=== PATIENT | female | born 1985 | race Caucasian/White ===

== ENCOUNTER 2023-09-09 11:44 | Emergency (ER) | payer OTHER, MEDICAID, SELFPAY ==
[2023-09-09 11:51] VITALS: BP 146/73; PULSE 85; RESP 17; TEMP 36.9; O2SAT 100; BMI 20.7
--- NOTE | 2023-09-09 11:55 | DI.RAD.S_ITS ---
PROCEDURE: XR WRIST LT MIN 3V INDICATIONS: fall TECHNIQUE: 3 views of the wrist were acquired. COMPARISON: None. FINDINGS: Bones: Comminuted fracture of the distal radius with minimal displacement with largest butterfly fragment measuring 5.2 centimeters. Fracture lucency extends to the distal radial ulnar joint. Soft tissues: No suspicious soft tissue calcifications. IMPRESSION: Comminuted distal radial fracture. Dictated by: Lior Obregon M.D. on 09/09/2023 at 11:20 Approved by: Lior Obregon M.D. on 09/09/2023 at 11:23
--- NOTE | 2023-09-09 12:31 | ED.UPPEXIN ---
HPI - Extremity Injury (Upper) <Brett Slade PA-C - Last Filed: 09/09/23 13:04> General Chief Complaint: Extremity Injury, Upper Stated Complaint: Fell down stairs, forearm and wrist injury Time Seen by Provider: 09/09/23 12:31 Source: patient Mode of arrival: Ambulatory History of Present Illness HPI narrative: This is a 37-year-old female presents to the emergency department due to a left forearm injury. She was working in his stairs when she fell backwards and landed on her left forearm and hand. She was not report any pain in her hand or elbow or shoulder or any other part of her body but does report pain over the left wrist. Denies any numbness, range of motion decreased secondary to pain in the distal fingers. Related Data Previous Rx's Medication Instructions Recorded oxycodone 5 mg tablet 5 mg PO Q6H PRN pain #30 tabs 09/09/23 Allergies Allergy/AdvReac Type Severity Reaction Status Date / Time No Known Allergies Allergy Unknown Verified 09/09/23 11:54 [NO KNOWN ALLERGIES] Review of Systems <Brett Slade PA-C - Last Filed: 09/09/23 13:04> Review of Systems Narrative: GENERAL: Denies chills, fatigue, malaise, fever, sweats. HEENT: Denies sinus pain, ear pain, sore throat, difficulty swallowing, dizziness. RESPIRATORY: Denies dyspnea, cough, wheezing, hemoptysis, sputum. CARDIOVASCULAR: Denies chest pain, palpitations, orthopnea, edema, GASTROINTESTINAL: Denies nausea, vomiting, abdominal pain, diarrhea, constipation, melena. : Denies dysuria, frequency, incontinence, hematuria, urinary retention. MUSCULOSKELETAL: Left wrist pain SKIN: Denies rash, skin lesions, or other NEUROLOGIC: Denies weakness, headache, numbness, change in speech, confusion, seizures, incoordination. PSYCHIATRIC: No concerning psychosocial issues. 12 point review of systems is negative except for those stated above Patient History <LAQUITA Quezada Last Filed: 09/09/23 13:04> Social History Smoking Status: Never smoker Smoking Status: Never smoker alcohol intake frequency: other Substance Use Type: does not use Exam <LAQUITA Quezada Last Filed: 09/09/23 13:04> Narrative Exam Narrative: GENERAL: Well-developed patient, in mild distress. HEAD: Atraumatic. Normocephalic. EYES: Pupils equal round and reactive. Extraocular motions intact. No scleral icterus. No injection or drainage. ENT: Nose without bleeding, purulent drainage. Throat without erythema, tonsillar hypertrophy or exudate. Airway patent. NECK: Trachea midline. Non tender CARDIOVASCULAR: Regular rate and rhythm without murmurs, gallops, or rubs. RESPIRATORY: Clear to auscultation. Breath sounds equal bilaterally. No wheezes, rales, or rhonchi. GASTROINTESTINAL: Abdomen soft, non-tender, nondistended. EXTREMITIES: Tenderness to palpation at the left distal radius. Neurovascularly intact through out. BACK: Nontender without deformity or crepitance. No flank tenderness. NEURO: AOx3. SKIN: No rash or erythema of visible areas Initial Vital Signs Initial Vital Signs: Vital Signs Temperature 98.4 F 09/09/23 11:51 Pulse Rate 85 09/09/23 11:51 Respiratory Rate 17 09/09/23 11:51 Blood Pressure 146/73 H 09/09/23 11:51 Pulse Oximetry 100 09/09/23 11:51 Oxygen Delivery Method Room Air 09/09/23 11:51 <Gwendolyn Casillas DO - Last Filed: 09/09/23 14:27> Initial Vital Signs Initial Vital Signs: Vital Signs Temperature 98.4 F 09/09/23 11:51 Pulse Rate 85 09/09/23 11:51 Respiratory Rate 17 09/09/23 11:51 Blood Pressure 146/73 H 09/09/23 11:51 Pulse Oximetry 100 09/09/23 11:51 Oxygen Delivery Method Room Air 09/09/23 11:51 Procedures <Brett Slade PA-C - Last Filed: 09/09/23 13:04> Orthopedic Splinting/Casting Injury #1: Time of procedure: 12:50 Side: left Upper Extremity Injury Location: wrist Upper Extremity Immobilizer: sugar tong splint Post splinting neuro exam: intact Post splinting vascular exam: intact Placed by: Nursing Course <Brett Slade PA-C - Last Filed: 09/09/23 13:04> Orders Ordered: ED Orders 09/09/23 11:55 XR wrist LT min 3V Stat Discontinued Medications Oxycodone/Acetaminophen (Oxycodone/Acetaminophen 5/325 Tablet) 2 tab PO NOW ONE Stop: 09/09/23 12:41 Last Admin: 09/09/23 12:44 Dose: 2 tab Documented By: SPF Vital Signs Vital signs: Vital Signs - 8 hr 09/09/23 11:51 09/09/23 13:28 Temperature 98.4 F 99.0 F Pulse Rate 85 76 Respiratory Rate 17 Blood Pressure 146/73 H 118/78 Pulse Oximetry 100 98 Oxygen Delivery Method Room Air Room Air <Gwendolyn Casillas DO - Last Filed: 09/09/23 14:27> Orders Ordered: ED Orders 09/09/23 11:55 XR wrist LT min 3V Stat Discontinued Medications Oxycodone/Acetaminophen (Oxycodone/Acetaminophen 5/325 Tablet) 2 tab PO NOW ONE Stop: 09/09/23 12:41 Last Admin: 09/09/23 12:44 Dose: 2 tab Documented By: SPF Vital Signs Vital signs: Vital Signs - 8 hr 09/09/23 11:51 09/09/23 13:28 Temperature 98.4 F 99.0 F Pulse Rate 85 76 Respiratory Rate 17 Blood Pressure 146/73 H 118/78 Pulse Oximetry 100 98 Oxygen Delivery Method Room Air Room Air MDM - Extremity Injury (Upper) <Brett Slade PA-C - Last Filed: 09/09/23 13:04> Imaging Data Extremity x-ray #1: Radiologist's Impression: [place] [address] XRay Report Signed Patient: Lisette Good MR#: [id number] : 1985 Acct:[id number] Age/Sex: 37 / F Date of Service: 09/09/23 Loc: ED Accession Number: [id number] Procedure: XR wrist LT min 3V Ordering Provider: Gwendolyn Casillas D.O. PROCEDURE: XR WRIST LT MIN 3V INDICATIONS: fall TECHNIQUE: 3 views of the wrist were acquired. COMPARISON: None. FINDINGS: Bones: Comminuted fracture of the distal radius with minimal displacement with largest butterfly fragment measuring 5.2 centimeters. Fracture lucency extends to the distal radial ulnar joint. Soft tissues: No suspicious soft tissue calcifications. IMPRESSION: Comminuted distal radial fracture. Dictated by: Lior Obregon M.D. on 09/09/2023 at 11:20 Approved by: Lior Obregon M.D. on 09/09/2023 at 11:23 MDM Narrative Medical decision making narrative: MDM * differential diagnosis includes but not limited to fracture, sprain, neurovascular injury * Prior records reviewed: Patient has not been to the emergency department the past * My lab interpretation: None obtained * My imgaing interpretation: X-ray showed a comminuted distal radius fracture. * Clinical Decision Rules/Scores evaluated: None * Independent discussions with: None ED Course: This is a 37-year-old female presents emergency department due to a comminuted distal radius fracture. She was neurovascularly intact throughout. Patient was splinted and recommended follow up with Orthopedics. Neurovascularly intact post splint placement. Shared Decision Making: Discussed plan with patient who is comfortable with the plan. Social Considerations: None Disposition: Discharged to home Discharge Plan Departure Patient Disposition: Home Clinical Impression: Distal radial fracture Instructions: DI for Distal Radius Fracture Activity Restrictions/Additional Instructions: Thank you for coming to the [facility] Emergency Department today. As we discussed you have the fracture of your distal radius. Please use Tylenol for the pain. You may use the oxycodone for breakthrough pain. Please follow up with the Orthopedics provider his information was attached below. I hope you feel better soon. Please follow up with your primary care provider within a week if your symptoms continue. If you do not have a primary care provider please contact the [facility] Resource line at [phone]. They will ask some questions about your medical history and help you get set up with a provider in the community. Prescriptions: New oxycodone 5 mg tablet 5 mg PO Q6H PRN (Reason: pain) Qty: 30 0RF Referrals: Keven Martinez MD [Physician] - (f/u distal radius fracture. Thank you! ) Melania Wing PA-C [Primary Care Provider] - Stand Alone Forms: Patient Portal/API ED Sign-out <Gwendolyn Casillas DO - Last Filed: 09/09/23 14:27> Cosign ED Attending Ciarraature Attestation: I was immediately available in the department for consultation. Images were reviewed. Agree with plan for splint, follow-up with orthopedic surgery.
[2023-09-09] MEDS: OXYCODONE/ACETAMINOPHEN 5/325 TABLET 2 TAB PO (12:44)
[2023-09-09 13:28] VITALS: BP 118/78; PULSE 76; TEMP 37.2; O2SAT 98
== END 2023-09-09 13:36 | disposition home or self-care (01) ==
PROVIDERS: Emergency Provider Physician Assistant Medical; Family Provider Physician Assistant Medical; PCP Physician Assistant Medical
DX: S52.502A Unspecified fracture of the lower end of left radius, initial encounter for closed fracture (principal); W18.30XA Fall on same level, unspecified, initial encounter
CPT/HCPCS: 73110; 99283; 99284